=== PATIENT | female | born 1980 | race Caucasian/White ===

== ENCOUNTER 2019-12-19 07:22 | Outpatient (CLI) | payer MEDICAID, SELFPAY ==
[2019-12-21 16:26] LABS: SARS-CoV-2 RNA Undetected (Undetected); SARS-CoV-2 Specimen Source Nasopharynx
== END 2019-12-19 07:42 ==
PROVIDERS: Visit Provider Family Medicine
DX: Z11.59 Encounter for screening for other viral diseases (principal)
CPT/HCPCS: U0003

== ENCOUNTER 2020-04-07 19:03 | Outpatient (REF) | payer MEDICAID, SELFPAY ==
[2020-04-07 19:42] LABS: HCT 38.5 % (36.0-46.0); HGB 12.5 g/dL (11.2-15.7); MCH 32.3 pg (27.0-33.0); MCHC 32.5 % (32.0-36.0); MCV 99.5 fL (80-95); MPV 10.9 fL (8.0-11.0); Platelet Count 261 10^3/uL (130-400); RBC 3.87 10^6/uL (3.93-5.22); RDW 11.8 % (11.7-14.6); RDW-SD 43.5 fL
[2020-04-07 20:32] LABS: Vitamin B12 235 pg/mL (193-986)
[2020-04-09 09:35] LABS: HIV-1/2 Ag & Ab Screen Negative (Negative)
[2020-04-09 09:45] LABS: Hepatitis C Ab w Rflx HCV PCR Negative (Negative)
[2020-04-09 12:00] LABS: Syphilis Serology (RPR) Negative (Negative)
== END 2020-04-07 19:23 ==
LOC: LBN 19:03
PROVIDERS: PCP Nurse Practitioner Adult Health; Visit Provider Nurse Practitioner Adult Health
DX: Z11.3 Encounter for screening for infections with a predominantly sexual mode of transmission (principal); Z11.59 Encounter for screening for other viral diseases; Z78.9 Other specified health status; Z11.4 Encounter for screening for human immunodeficiency virus [HIV]
CPT/HCPCS: 85027; 86803; 87389; 82607; 86592